=== PATIENT | male | born 1970 | race Two or more races ===

== ENCOUNTER 2017-11-24 12:28 | Outpatient (CLI) | payer OTHER ==
[2017-12-16] MEDS ORDERED: COZAAR25 MG (11:27)
== END 2017-11-24 12:39 | disposition home or self-care (01) ==
LOC: RAD 12:28
DX: S86.111A Strain of other muscle(s) and tendon(s) of posterior muscle group at lower leg level, right leg, initial encounter (principal)

== ENCOUNTER → 2017-11-28 | Outpatient (CLI) | payer OTHER ==
[~2017-11-28] MED LIST: COZAAR25 MG
== END | disposition home or self-care (01) ==
LOC: SONOGRAMA 11:51
DX: S86.111A Strain of other muscle(s) and tendon(s) of posterior muscle group at lower leg level, right leg, initial encounter (principal)